=== PATIENT | female | born 1995 | race Caucasian/White ===

== ENCOUNTER 2019-05-04 22:56 | Emergency (ER) | payer MEDICAID ==
[~2019-05-04] VITALS: Ht 162.6 cm; Wt 62.6 kg
[2019-05-04 23:00] VITALS: Ht 162.6 cm; Wt 62.6 kg
[2019-05-05 00:42] VITALS: BP 127/72
== END 2019-05-05 00:42 | disposition home or self-care (01) ==
LOC: ED 22:56
DX: H01.004 Unspecified blepharitis left upper eyelid (principal)

== ENCOUNTER 2019-11-11 04:42 | Emergency (ER) | payer MEDICAID ==
[~2019-11-11] VITALS: Ht 162.6 cm; Wt 64.0 kg
[2019-11-11 04:56] VITALS: Ht 162.6 cm; Wt 64.0 kg
[2019-11-11 06:27] VITALS: BP 103/61
== END 2019-11-11 06:27 | disposition home or self-care (01) ==
LOC: ED 04:42
DX: M70.71 Other bursitis of hip, right hip (principal); M54.5 Low back pain; Y93.89 Activity, other specified

== ENCOUNTER 2020-02-17 20:27 | Emergency (ER) | payer MEDICAID ==
[~2020-02-17] VITALS: Ht 162.6 cm; Wt 61.0 kg
[2020-02-17 20:54] VITALS: Ht 162.6 cm; Wt 61.0 kg
[2020-02-18 00:14] LABS: BASOPHIL % 0.2 % (0-2); PLATELET COUNT 209 x10^3mcL (130-400); RED CELL DISTRIBUTION WIDTH 13.5 % (11.5-14.5)
[2020-02-18 00:17] LABS: CALCIUM 9.1 mg/dL (8.5-10.1); CARBON DIOXIDE 24.7 mmol/L (21-32); CHLORIDE SERUM 106 mmol/L (98-107); CREATININE SERUM 0.7 mg/dL (0.6-1.0); GFR1 > 60 mL/min; GLUCOSE SERUM 113 mg/dL (74-106); POTASSIUM SERUM 3.5 mmol/L (3.5-5.1); SODIUM SERUM 140 mmol/L (136-145)
[2020-02-18 00:18] LABS: ALBUMIN 3.6 g/dL (3.4-5.0); ALKALINE PHOSPHATASE 53 U/L (46-116); ALT/SGPT 16 U/L (14-59); AST/SGOT 23 U/L (15-37); BILIRUBIN TOTAL 0.4 mg/dL (0.20-1.00); LIPASE 131 IU/L (73-393); TOTAL PROTEIN, SERUM 7.2 g/dL (6.4-8.2)
[2020-02-18 00:51] VITALS: BP 116/68
== END 2020-02-18 00:51 | disposition home or self-care (01) ==
LOC: ED 20:27
PROVIDERS: Student in an Organized Health Care Education/Training Program
DX: K29.70 Gastritis, unspecified, without bleeding (principal)

== ENCOUNTER 2020-02-22 00:50 | Emergency (ER) | payer MEDICAID ==
[~2020-02-22] VITALS: Ht 162.6 cm; Wt 61.2 kg
[2020-02-22 00:58] VITALS: Ht 162.6 cm; Wt 61.2 kg
[2020-02-22 01:27] LABS: BASOPHIL % 1.7 % (0-2); PLATELET COUNT 218 x10^3mcL (130-400); RED CELL DISTRIBUTION WIDTH 12.7 % (11.5-14.5)
[2020-02-22 01:47] LABS: CALCIUM 9.1 mg/dL (8.5-10.1); CARBON DIOXIDE 26.9 mmol/L (21-32); CHLORIDE SERUM 102 mmol/L (98-107); CREATININE SERUM 0.8 mg/dL (0.6-1.0); GFR1 > 60 mL/min; GLUCOSE SERUM 90 mg/dL (74-106); POTASSIUM SERUM 3.6 mmol/L (3.5-5.1); SODIUM SERUM 137 mmol/L (136-145)
[2020-02-22 01:54] LABS: ALBUMIN 3.8 g/dL (3.4-5.0); ALKALINE PHOSPHATASE 56 U/L (46-116); ALT/SGPT 19 U/L (14-59); AST/SGOT 17 U/L (15-37); BILIRUBIN TOTAL 0.37 mg/dL (0.20-1.00); LIPASE 197 IU/L (73-393); TOTAL PROTEIN, SERUM 7.6 g/dL (6.4-8.2)
[2020-02-22 02:18] VITALS: BP 117/57
== END 2020-02-22 02:18 | disposition home or self-care (01) ==
LOC: ED 00:50
PROVIDERS: Emergency Medicine
DX: R10.30 Lower abdominal pain, unspecified (principal); M54.5 Low back pain; R11.0 Nausea; R07.89 Other chest pain
CPT/HCPCS: J1885; J2405; J7030